=== PATIENT | female | born 1975 ===

== ENCOUNTER 2022-05-14 11:28 | Emergency (ER) | payer SELFPAY ==
--- NOTE | 2022-05-14 11:52 | Event Note ---
ED Screening Note ED Screening Note: left side facial weakness since Wednesday no hx cva/tia closing eyes bilateral no pronator ambulatory no aphasia pmh denies rx daily denies This initial assessment/diagnostic orders/clinical plan/treatment(s) is/are subject to change based on patients health status, clinical progression and re-assessment by fellow clinical providers in the ED. Further treatment and workup at subsequent clinical providers discretion. Patient/guardian urged not to elope from the ED as their condition may be serious if not clinically assessed and managed. Initial orders include: main for eval
--- NOTE | 2022-05-14 13:57 | Cat Scan Report ---
CT BRAIN: 05/14/2022 INDICATION / CLINICAL INFORMATION: Stroke symptoms. COMPARISON: None available. FINDINGS: BRAIN/INTRACRANIAL STRUCTURES: Unenhanced CT images of the brain demonstrate no evidence of acute abn ormality. Ventricles and sulci are normal in size and shape. There is no evidence of ischemic injury, hemorrhage, or mass. There are no abnormal extra-axial fluid collections. EXTRACRANIAL STRUCTURES: Unremarkable. IMPRESSION: Negative unenhanced CT of the brain All CT scans at this location are performed using dose reduction to ALARA by means of automated expos ure control. Signer Name: Harish Ramirez MD Signed: 05/14/2022 1:52 PM Workstation Name: [id number]
[2022-05-14 14:17] LABS: Basophils % (Auto) 0.3 % (0.0-1.8); Eosinophils # (Auto) 0.1 K/mm3 (0.0-0.4); Eosinophils % (Auto) 1.4 % (0.0-4.3); Hematocrit 38.8 % (30.3-42.9); Lymphocytes # (Auto) 1.5 K/mm3 (1.2-5.4); Lymphocytes % (Auto) 31.2 % (13.4-35.0); Mean Corpuscular HGB Conc 34 % (30-34); Mean Corpuscular Volume 91 fl (79-97); Monocytes # (Auto) 0.3 K/mm3 (0.0-0.8); Monocytes % (Auto) 7.1 % (0.0-7.3); Platelet Count 147 K/mm3 (140-440); Red Blood Count 4.26 M/mm3 (3.65-5.03); Red Cell Distribution Width 13.6 % (13.2-15.2)
--- NOTE | 2022-05-14 14:23 | Emergency Department Report ---
ED Neuro Deficit HPI - General Chief Complaint: Neuro Symptoms/Deficit Stated Complaint: NUMBNESS IN FACE Time Seen by Provider: 05/14/22 12:32 Source: patient Mode of arrival: Ambulatory Limitations: No Limitations - History of Present Illness Initial Comments: Patient is a 46-year-old female presenting to ED with complaint of numbness and weakness in the left side of her face along with numbness in her left arm. Symptoms began on Wednesday with progressive worsening. She denies any recent illness. No past history of CVA. - Related Data Allergies/Adverse Reactions: Allergies Allergy/AdvReac Type Severity Reaction Status Date / Time No Known Allergies Allergy Unverified 05/14/22 11:36 ED Review of Systems ROS: Stated complaint: NUMBNESS IN FACE Other details as noted in HPI Constitutional: denies: chills, fever Respiratory: denies: cough, shortness of breath, wheezing Cardiovascular: denies: chest pain, palpitations Endocrine: no symptoms reported Gastrointestinal: denies: abdominal pain, nausea, diarrhea Genitourinary: denies: urgency, dysuria, discharge Musculoskeletal: denies: back pain, joint swelling, arthralgia Skin: denies: rash, lesions Neurological: weakness, numbness Psychiatric: denies: anxiety, depression ED Past Medical Hx - Past Medical History Previous Medical History?: Yes Hx Hypertension: Yes - Surgical History Past Surgical History?: No - Social History Smoking Status: Never Smoker ED Neuro Physical Exam - General Limitations: No Limitations General appearance: alert, in no apparent distress Suspected Stroke: Yes - Head Head exam: Present: atraumatic, normocephalic - Eye Eye exam: Present: normal appearance, PERRL, EOMI - Neck Neck exam: Present: normal inspection - Respiratory Respiratory exam: Present: normal lung sounds bilaterally. Absent: respiratory distress - Cardiovascular Cardiovascular Exam: Present: regular rate, normal rhythm, normal heart sounds - GI/Abdominal GI/Abdominal exam: Present: soft. Absent: tenderness - Rectal Rectal exam: Present: deferred - Neurological Exam Neurological exam: Present: alert, oriented X3, other (Left facial paralysis t hat does not spare the eyebrow) - NIHSS Assessment Interval: Baseline 1a. Level of Consciousness: alert/keenly responsive 1b. LOC Questions: answers both correctly 1c. LOC Commands: performs tasks correctly 2. Best Gaze: normal 3. Visual: no visual loss 4. Facial Palsy: partial paralysis 5b. Motor Arm Right: no drift 5a. Motor Arm Left: no drift 6a. Motor Leg Left: no drift 6b. Motor Leg Right: no drift 7. Limb Ataxia: absent 8. Sensory: normal 9. Best Language: no aphasia 10. Dysarthria: normal 11. Extinction/Inattention: no abnormality Total Score: 2 Stroke Severity: Minor Stroke - Psychiatric Psychiatric exam: Present: normal affect, normal mood - Skin Skin exam: Present: warm, dry, intact, normal color ED Course Vital Signs 05/14/22 05/14/22 11:39 12:24 Temperature 98.3 F 97.7 F Pulse Rate 66 64 Respiratory 18 12 Rate Blood Pressure 160/78 Blood Pressure 122/81 [Left] O2 Sat by Pulse 97 99 Oximetry - Lab Data Result diagrams: 05/14/22 13:43 05/14/22 13:43 Lab Results 05/14/22 05/14/22 Range/Units 13:43 13:43 WBC 4.8 (4.5-11.0) K/mm3 RBC 4.26 (3.65-5.03) M/mm3 Hgb 13.0 (10.1-14.3) gm/dl Hct 38.8 (30.3-42.9) % MCV 91 (79-97) fl MCH 31 (28-32) pg MCHC 34 (30-34) % RDW 13.6 (13.2-15.2) % Plt Count 147 (140-440) K/mm3 Lymph % (Auto) 31.2 (13.4-35.0) % [place] % (Auto) 7.1 (0.0-7.3) % Eos % (Auto) 1.4 (0.0-4.3) % Baso % (Auto) 0.3 (0.0-1.8) % Lymph # (Auto) 1.5 (1.2-5.4) K/mm3 [place] # (Auto) 0.3 (0.0-0.8) K/mm3 Eos # (Auto) 0.1 (0.0-0.4) K/mm3 Baso # (Auto) 0.0 (0.0-0.1) K/mm3 Seg Neutrophils % 60.0 (40.0-70.0) % Seg Neutrophils # 2.9 (1.8-7.7) K/mm3 Sodium 137 (137-145) mmol/L Potassium 4.3 (3.6-5.0) mmol/L Chloride 102.6 (98-107) mmol/L Carbon Dioxide 25 (22-30) mmol/L Anion Gap 14 mmol/L BUN 13 (7-17) mg/dL Creatinine 0.5 L (0.6-1.2) mg/dL Estimated GFR > 60 ml/min BUN/Creatinine Ratio 26 % Glucose 83 (65-100) mg/dL Calcium 8.9 (8.4-10.2) mg/dL Total Bilirubin 0.50 (0.1-1.2) mg/dL AST 25 (5-40) units/L ALT 24 (7-56) units/L Alkaline Phosphatase 81 (35-129) units/L Total Protein 7.8 (6.3-8.2) g/dL Albumin 4.1 (3.9-5) g/dL Albumin/Globulin Ratio 1.1 % - Medical Decision Making Patient presenting to ED with complaint of left-sided facial weakness which appears to involve the eyebrow along with numbness in the left arm and left leg. Teleneurology consult obtained. CT head unremarkable. Neurology recommends CTA head and neck along with MRI for further evaluation. CBC and CMP grossly unremarkable. Will admit to hospitalist. Critical care attestation.: If time is entered above; I have spent that time in minutes in the direct care of this critically ill patient, excluding procedure time. ED Disposition Clinical Impression: Weakness on left side of face, Left sided numbness, Suspected cerebrovascular accident (CVA) Disposition: 09 ADMITTED INPATIENT Is pt being admited?: Yes Condition: Stable
--- NOTE | 2022-05-14 14:33 | Consultation ---
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 Last Known Normal: I have collected independent history specific to time last normal or last known well. We have collaborated with the provider and at this time, we have the most current timeline with the information that is available. 05/11/22 Duration: constant days Associated Symptoms: headache neck pain # Scores Time of exam and NIHSS ( Time): 05/14/2022, 14:10 Level of Consciousness 1a: [0] = Alert; keenly responsive LOC Questions 1b: [1] = Answers one correctly LOC Commands 1c: [0] = Performs both tasks correctly Best Gaze 2: [0] = Normal Visual 3: [0] = No visual loss Facial Palsy 4: [3] = Complete paralysis Motor Arm Left 5a: [0] = No drift Motor Arm Right 5b: [0] = No drift Motor Leg Left 6a: [0] = No drift Motor Leg Right 6b: [0] = No drift Limb Ataxia 7: [0] = Absent Sensory 8: [1] = [id number] sensory loss Best Language 9: [0] = No aphasia Dysarthria 10: [0] = Normal Extinction and Inattention 11: [0] = No abnormality NIHSS Total: 5 # Exam SBP: 121 DBP: 105 Mental Status: awake alert and oriented x 3 follows commands Did not know the month Language: normal speech Cranial Nerves: left facial droop Decreased blink on left & decreased forehead wrinkles Sensory: decreased sensation left face decreased sensation left upper extremity decreased sensation left lower extremity # ROS Pulmonary: no shortness of breath Cardiovascular: no chest pain # PMH-FH-SH Social History: non-smoker Medications: denies Denied control pills Allergies: NKDA # Data Glucose: Pending Time Head CT personally read by me (Eastern Time): 05/14/2022, 14:[address]: no bleed per radiologist read # Assessment Impression: [place] Palsy Ischemic Stroke (Subacute) # Plan Thrombolytic/Intervention: NOT IV Thrombolysis or IA Intervention candidate Thrombolytic Exclusion: > 4.5 hours Labs: B12 CBC comprehensive metabolic panel ESR hemoglobin A1c lipid panel thiamine troponin TSH urine drug screen ua Imaging: (urgency: STAT): CT Angiogram Head and CT Angiogram Neck AND call back with results if abnormal Imaging: (urgency: routine): MRI Brain with AND without contrast Diagnostic Test: echo without bubble study Therapy/Evaluation: NPO until swallow evaluation PT/OT evaluation speech/swallow consultation Medication: migraine cocktail: Toradol 30 mg IV + Benadryl 25 mg IV + antiemetic IV Would hold on starting antiplatelet & statin therapy pending imaging results, given atypical lack of classic stroke risk factors, to assess for potential dissection, mass lesion, etc. DVT Prophylaxis: SCD chemical DVT prophylaxis Other: telemetry monitoring I have discussed my recommendations with the referring provider Disposition: admit Medications and Allergies Allergies Allergy/AdvReac Type Severity Reaction Status Date / Time No Known Allergies Allergy Unverified 05/14/22 11:36 Physical Examination - Vital Signs Vital Signs: Vital Signs Temp Pulse Resp BP Pulse Ox 98.3 F 66 18 160/78 97 05/14/22 11:39 05/14/22 11:39 05/14/22 11:39 05/14/22 11:39 05/14/22 11:39 Results - Laboratory Findings CBC and BMP: 05/14/22 13:43
[2022-05-14 14:34] LABS: Alanine Aminotransferase 24 units/L (7-56); Albumin 4.1 g/dL (3.9-5); Blood Urea Nitrogen 13 mg/dL (7-17); Calcium 8.9 mg/dL (8.4-10.2); Hemolysis Index 5
[2022-05-14 14:40] LABS: BUN/Creatinine Ratio 26
[2022-05-14] MEDS ORDERED: MORPHINE 4 MG/1 ML INJ IV ONE (15:04)
[2022-05-14] MEDS ORDERED: ASPIRIN 325 MG TAB PO ONE (15:08)
--- NOTE | 2022-05-14 17:09 | Cat Scan Report ---
CTA HEAD WITH CONTRAST 05/14/2022 HISTORY: Left facial droop, left-sided numbness 100ml of [id number]. COMPARISON: None. TECHNIQUE: All CT scans at this location are performed using CT dose reduction for ALARA by means of automated exposure control.. 3-D/MIP reformats postprocessed. Percentage stenosis is determined by d irect quantitative measurements of diseased internal carotid artery diameter compared with normal dis jacqueline internal carotid artery reference segments or by criteria similar to NASCET where applicable. CONTRAST: 100 ml of 50 FINDINGS: CTA HEAD: Intracranial vertebral arteries: No significant abnormality. Basilar artery: No significant abnormality. Posterior cerebral arteries: No significant abnormality. Intracranial internal carotid arteries: No significant abnormality. Anterior cerebral arteries: No significant abnormality. Middle cerebral arteries: No significant abnormality. Dural venous sinuses:Not optimally opacified. No significant abnormality. Additional findings: None. IMPRESSION: 1. No significant abnormality. Signer Name: Harish Ramirez MD Signed: 05/14/2022 5:04 PM Workstation Name: [id number]
--- NOTE | 2022-05-14 17:13 | Cat Scan Report ---
CTA HEAD WITH CONTRAST 05/14/2022 HISTORY: Left facial droop, left-sided numbness 100ml of [id number]. COMPARISON: None. TECHNIQUE: All CT scans at this location are performed using CT dose reduction for ALARA by means of automated exposure control.. 3-D/MIP reformats postprocessed. Percentage stenosis is determined by d irect quantitative measurements of diseased internal carotid artery diameter compared with normal dis jacqueline internal carotid artery reference segments or by criteria similar to NASCET where applicable. CONTRAST: 100 ml of Omnipaque 350 FINDINGS: The intracranial vessels in anterior and posterior circulation demonstrate an irregular appearance di ffusely on both the thin section images and thick section reformatted images. It is unclear whether t his is the result of technique/artifact, or is evidence of diffuse vascular process such as vasculiti s. There is no evidence of vessel occlusion or aneurysm. Dural venous sinuses:Not optimally opacified. No significant abnormality. Additional findings: None. IMPRESSION: 1. Reformatted images demonstrating visual evidence of diffuse vascular irregularity without occlusio n. See above discussion. Signer Name: Harish Ramirez MD Signed: 05/14/2022 5:09 PM Workstation Name: [id number]
--- NOTE | 2022-05-14 17:26 | Event Note ---
Date: 05/14/22 Patient seen and examined Patient has left facial Garrido's palsy Patient complains of left-sided numbness CT angiogram of the neck and head are normal The clinical picture does not fit diagnosis of thalamic stroke Thalamic stroke do not have Garrido's palsy Patient to be discharged on tapering dose of prednisone Patient to do physical therapy for the facial muscles Patient consult Language barrier present Refractory Mixer was her daughter via phone
[2022-05-14 19:13] VITALS: BP 118/77
== END 2022-05-14 19:14 | disposition home or self-care (01) ==
LOC: ED 11:28
DX: R53.1 Weakness (principal); R20.0 Anesthesia of skin; Z86.73 Personal history of transient ischemic attack (TIA), and cerebral infarction without residual deficits; I10 Essential (primary) hypertension
CPT/HCPCS: 36415; 70450; 70496; 70498; 80053; 85025; 96374; 99284; J2270; Q9967